=== PATIENT | female | born 1960 | race Caucasian/White ===

== ENCOUNTER 2017-07-31 07:08 | Day surgery (SDC) | payer OTHER ==
[~2017-07-31] VITALS: Ht 157.5 cm; Wt 83.6 kg
[2017-07-31 08:10] VITALS: Ht 157.5 cm; Wt 83.6 kg
[2017-07-31] MEDS ORDERED: NORT50CA PO (08:18)
[2017-07-31] MEDS ORDERED: METF1000 PO (08:18)
[2017-07-31] MEDS ORDERED: TIZA4CAP6 PO (08:18)
[2017-07-31] MEDS ORDERED: OMEP40CA6 PO (08:18)
[2017-07-31] MEDS ORDERED: LISI10TA2 PO (08:18)
[2017-07-31] MEDS ORDERED: ATOR40TA68 PO (08:18)
[2017-07-31] MEDS ORDERED: DICL50TA11 PO (08:18)
[2017-07-31] MEDS ORDERED: LIDO1KIT TP (08:18)
[2017-07-31] MEDS ORDERED: APAP/CODEINE PO (08:18)
[2017-07-31] MEDS ORDERED: GABA300C16 PO (08:18)
[2017-07-31 08:26] VITALS: BP 120/61; PULSE 88; RESP 18
[2017-07-31] MEDS ORDERED: PROPOFOL 60 ML ONE (08:45)
--- NOTE | 2017-07-31 09:18 | OPPN ---
Date/Time of Note Date/Time of Note DATE: 07/31/17 TIME: 09:16 Operative Report Preoperative Diagnosis Abdominal pain Chronic heartburn Screening colonoscopy Postoperative Diagnosis Hiatal hernia and gastroesophageal reflux disease Gastritis with erosions Internal hemorrhoids No colon neoplasm is identified Operation/Procedure Performed Esophagogastroduodenoscopy and biopsy Colonoscopy Surgeon see signature line event marketing assistant None Anesthesia: MAC Estimated blood loss: none Transfusion Required none Specimen Gastric mucosal biopsy Grafts/Implants none Complications none GAL MCCURDY MD Jul 31, 2017 09:17
[2017-07-31 09:40] VITALS: BP 133/61; PULSE 72; RESP 14
--- NOTE | 2017-08-01 09:46 | GILP ---
DATE OF PROCEDURE: NAME OF PROCEDURES: 1. Esophagogastroduodenoscopy and biopsy. 2. Colonoscopy. SURGEON: Gal Lopes MD PREOPERATIVE DIAGNOSES: 1. Abdominal pain. 2. Chronic heartburn. 3. Screening colonoscopy. POSTOPERATIVE DIAGNOSES: 1. Hiatal hernia and gastroesophageal reflux disease. 2. Gastritis with erosions. 3. Gastric mucosal biopsies were taken for Helicobacter pylori test. 4. Colonoscopy all the way to the cecum. 5. Internal hemorrhoids. 6. No colon neoplasm was identified. INDICATION FOR THE PROCEDURE: Ms. Andreina Celaya is a 57-year-old female patient who had upper abdom inal pain and chronic heartburn, not responding to therapy. Patient also needed screening colonosco py. The procedures and possible complications are well explained to the patient. The patient understood and consented to the procedure. DESCRIPTION OF PROCEDURE: Under the influence of anesthesia, the gastroscope was carefully introduc ed into the esophagus and under direct vision, it was advanced to the stomach and through the pyloru s into the duodenal bulb and descending duodenum. FINDINGS: ESOPHAGUS: The patient had a hiatal hernia and gastroesophageal reflux disease. STOMACH: She had gastritis with erosions. Gastric mucosal biopsies were taken for H. pylori test. DUODENUM: Normal. The colonoscope was carefully introduced in the rectum and under direct vision, it was advanced all the way to the cecum. FINDINGS: The patient had internal hemorrhoids. No colon neoplasm was identified. She tolerated the procedure very well and there was no complication from the procedure. At the end of the procedure, she was awake with stable vital signs and she was discharged home to the care of h er family. IMPRESSION: Please see postoperative diagnosis. PLAN: 1. Continue omeprazole. 2. Add Zantac 300 mg p.o. at bedtime. 3. Await H. pylori test report. 4. Next screening colonoscopy in 10 years. Dictated By: GAL PEREZ/MIKALA Conf#: [id number] DID#: [id number]
== END 2017-07-31 11:46 | disposition home or self-care (01) ==
LOC: GIL 07:08
PROVIDERS: ATTEND Internal Medicine Gastroenterology
DX: K21.9 Gastro-esophageal reflux disease without esophagitis (principal); E66.9 Obesity, unspecified; Z68.33 Body mass index [BMI] 33.0-33.9, adult; E11.9 Type 2 diabetes mellitus without complications; I10 Essential (primary) hypertension; E78.5 Hyperlipidemia, unspecified; K44.9 Diaphragmatic hernia without obstruction or gangrene; K29.70 Gastritis, unspecified, without bleeding; K25.9 Gastric ulcer, unspecified as acute or chronic, without hemorrhage or perforation; K64.8 Other hemorrhoids; R19.5 Other fecal abnormalities; K59.00 Constipation, unspecified
CPT/HCPCS: 43239; 45378; 87081; Z7610